=== PATIENT | female | born 1965 | race African-American/Black ===

== ENCOUNTER 2016-06-21 07:45 | Emergency (ER) | payer OTHER ==
[~2016-06-21] VITALS: Ht 157.5 cm; Wt 119.7 kg
[~2016-06-21 07:45] MED LIST: LISINOPRIL-HYDR1 TA1 PO; MOTRIN800 MG PO; NORVASC10 MG PO; TENORMIN50 M1 PO
[2016-06-21 07:51] VITALS: BP 151/73
--- NOTE | 2016-06-21 07:55 | NUR ---
Patient ambulated to bed 05.
--- NOTE | 2016-06-21 07:56 | NUR ---
PT PRESENTS TO ER W/C/O RIGHT FLANK PAIN X1 MONTH. HX HTN; DENIES N/V/D; SKIN IS PINK/WARM/DRY; AAOX4 WITH EVEN AND STEADY GAIT; LUNGS CLEAR BL; HR EVEN AND REGULAR; PT DENIES ANY FEVER, CP, SOB, OR COUGH AT THIS TIME; PATIENT STATES PAIN OF 7/10 AT THIS TIME; VSS; PATIENT POSITIONED FOR COMFORT; HOB ELEVATED; BEDRAILS UP X2; BED DOWN. ER MD MADE AWARE OF PT STATUS.
--- NOTE | 2016-06-21 08:05 | NUR ---
Dr. Hameed evaluating patient at bedside.
--- NOTE | 2016-06-21 08:45 | NUR ---
AAO PT NO ACUTE DISTRESS HAD REFUSE PAIN MEDS EARLIER, C/O PAIN NOW WORSE WHEN LYING DOWN, REQUESTING PAIN MED, ER MD NOTIFIED
[2016-06-21] MEDS ORDERED: KETOROLAC 60 MG/2 ML VIAL IM ONE (09:00)
--- NOTE | 2016-06-21 09:18 | NUR ---
POST MEDICATION, AAO PT NO C/O PAIN, NO ACUTE DISTRESS NOTED, PLACED ON MONITOR, VSS, WARM BLANKET PROVIDED
[2016-06-21] MEDS ORDERED: ONDANSETRON 4 MG ODT PO ONE (10:10)
[2016-06-21] MEDS ORDERED: MORPHINE SULFATE 5 MG/ML VIAL IM ONE (10:10)
[2016-06-21] MEDS ORDERED: MORPHINE SULFATE 4 MG/ML SYR IM ONE (10:15)
--- NOTE | 2016-06-21 10:23 | NUR ---
PAIN MEDICATION GIVEN PER PT REQUEST DUE TO PAIN COMING BACK
--- NOTE | 2016-06-21 10:25 | NUR ---
AAO PT TAKEN OFF THE UNIT BY ABHI NELSON VIA SUSI TO CT
[2016-06-21 11:22] VITALS: BP 138/81
--- NOTE | 2016-06-21 11:22 | NUR ---
Patient discharged with v/s stable. Written and verbal after care instructions given and explained. Patient alert, oriented and verbalized understanding of instructions. Ambulatory with steady gait. All questions addressed prior to discharge. ID band removed. Patient advised to follow up with PMD. Rx of NORCO, NAPROSYN given. Patient educated on indication of medication including possible reaction and side effects. Opportunity to ask questions provided and answered.
== END 2016-06-21 11:22 | disposition home or self-care (01) ==
LOC: MED 07:45
DX: R10.11 Right upper quadrant pain (principal); M54.9 Dorsalgia, unspecified; I10 Essential (primary) hypertension; Z98.890 Other specified postprocedural states
CPT/HCPCS: 36415; 74176; 80053; 81001; 81025; 83690; 83735; 85025; 96372; 99285; J1885; J2270; S0119

== ENCOUNTER 2018-08-22 06:45 | Emergency (ER) | payer OTHER ==
[~2018-08-22] VITALS: Ht 157.5 cm; Wt 130.2 kg
[~2018-08-22 06:45] MED LIST changes: +AMLO10TA PO; +ATEN50TA8 PO; +IBUP-974 PO; -LISINOPRIL-HYDR1 TA1 PO; -MOTRIN800 MG PO; -NORVASC10 MG PO; -TENORMIN50 M1 PO; +[UNRECOGNIZED DRUG - CODE] PO
[2018-08-22 07:02] VITALS: BP 154/91
--- NOTE | 2018-08-22 07:13 | NUR ---
53 Y FEMALE BIB SELF C/O PAIN TO THE RIGHT EAR X 2 HOURS. PT STATED SHE WAS CLEANING HER EARS AND A PIECE OF COTTON GOT STUCK IN IT. UPON EXAMINATION, NO COTTON SWAB SEEN. PAIN 10/10 ACHING. VSS AT THIS TIME. AA0X4. BED IS DOWN, LOCKED, BED RAIL X 1, ERMD TO SEE PT. [facility] MED[facility] HX: HTN
--- NOTE | 2018-08-22 07:43 | NUR ---
DR SIMMONS AT BEDSIDE
--- NOTE | 2018-08-22 07:51 | NUR ---
COTTON REMOVED FROM PT EAR BY DR SIMMONS
[2018-08-22 07:55] VITALS: BP 152/90
--- NOTE | 2018-08-22 07:55 | NUR ---
Patient discharged with v/s stable. Written and verbal after care instructions given and explained. Patient verbalized understanding. Ambulatory with steady gait. All questions addressed prior to discharge. Advised to follow up with PMD.
== END 2018-08-22 07:55 | disposition home or self-care (01) ==
LOC: MED 06:45
DX: T16.1XXA Foreign body in right ear, initial encounter (principal); I10 Essential (primary) hypertension; Z79.899 Other long term (current) drug therapy; X58.XXXA Exposure to other specified factors, initial encounter; Y93.89 Activity, other specified; Y92.89 Other specified places as the place of occurrence of the external cause; Y99.8 Other external cause status
CPT/HCPCS: 69200; 99284